=== PATIENT | male | born 1955 | race Caucasian/White ===

== ENCOUNTER 2016-11-22 22:04 | Inpatient (IN) | payer SELFPAY ==
[~2016-11-22] VITALS: Ht 180.3 cm; Wt 118.7 kg
[2016-11-23 02:45] LABS: BASOPHILS 0.1 % (0-2); EOSINOPHILS 0 % (0-7); HEMATOCRIT 53.2 % (42.0-54.0); HEMOGLOBIN 18.3 g/dL (13.5-17.5); IMMATURE GRANULOCYTES 0.4 % (0-5); MCHC 34.4 g/dL (31.0-37.0); MCV 90.2 fL (80.0-100.0); MEAN PLATELET VOLUME 12.5 fL (7.4-10.4); MONOCYTES 7.1 % (2-11); NEUTROPHILS 84.4 % (40-80); PLATELET COUNT 199 10x3/uL (130-400); RDW 13.2 % (11.5-14.5); WBC 12.1 10x3/uL (4.8-10.8)
[2016-11-23 02:58] LABS: ALBUMIN 3.8 g/dL (3.4-5.0); ANION GAP 28.3 mmol/L (8-16); BILIRUBIN - TOTAL 0.59 mg/dL (0.2-1.3); CALCIUM 9.6 mg/dL (8.5-10.1); CARBON DIOXIDE 14.2 mmol/L (21.0-32.0); CREATININE - SERUM 1.2 mg/dL (0.6-1.3); MAGNESIUM - SERUM 1.9 mg/dL (1.8-2.4); POTASSIUM - SERUM 4.5 mmol/L (3.5-5.1)
[2016-11-23] MEDS ORDERED: SEROQUEL100 MG (11:08)
[2016-11-23] MEDS ORDERED: AMBIEN10 MG PO (11:08)
[2016-11-23] MEDS ORDERED: KLONOPIN0.5 MG PO (11:10)
[2016-11-23 11:20] VITALS: BP 165/84; Ht 180.3 cm; Wt 118.7 kg
--- NOTE | 2016-11-23 11:33 | NUR ---
ARRIVED FROM ER VIA WC. AWAKE AND ALERT. COOL AND DRY. COLOR FLUSHED. IV SL IN L WRIST. LUNGS CLEAR. SEE ASSESMENT FOR FURTHER EVAL.
[2016-11-23 12:00] VITALS: BP 165/84
[2016-11-23 15:59] VITALS: BP 146/83
[2016-11-23 17:51] LABS: HEMOGLOBIN A1C 10.3 % (4.8-6.0)
[2016-11-23 19:00] VITALS: BP 163/99
--- NOTE | 2016-11-23 19:30 | NUR ---
RECEIVED REPORT, IV-L.WRIST NS @100, PT HAS SCD ON, A&O, ACHS, ON ELECTOLYTE PROTOCOL, BED IS LOW, SRX2, CALL LIGHT IN REACH, WILL CONTINUE PLAN OF CARE
[2016-11-24] VITALS: BP 147/79
[2016-11-24 04:00] VITALS: BP 165/101
[2016-11-24 06:32] LABS: CALCIUM 8.6 mg/dL (8.5-10.1); CHLORIDE - SERUM 104 mmol/L (98-107); CREATININE - SERUM 0.9 mg/dL (0.6-1.3); POTASSIUM - SERUM 4.2 mmol/L (3.5-5.1); SODIUM 136 mmol/L (136-145); UREA NITROGEN 20 mg/dL (7-18); eGFR NON AFRICAN AMERICAN > 90 mL/min (90-120)
[2016-11-24 06:33] LABS: HEMATOCRIT 50.3 % (42.0-54.0); HEMOGLOBIN 17.4 g/dL (13.5-17.5); LYMPHOCYTES 12.3 % (15-50); MCH 30.5 pg (26.0-34.0); MCHC 34.6 g/dL (31.0-37.0); PLATELET COUNT 208 10x3/uL (130-400); RDW 13.1 % (11.5-14.5); WBC 12.6 10x3/uL (4.8-10.8)
[2016-11-24 06:34] LABS: CALC OSMOLALITY 280 mosm/kg (275-300); CARBON DIOXIDE 18.1 mmol/L (21.0-32.0); GLUCOSE 215 mg/dL (74-106); MCV 88.2 fL (80.0-100.0)
[2016-11-24 08:52] VITALS: BP 160/95
--- NOTE | 2016-11-24 11:30 | NUR ---
GALEN FROM [facility] WAS SUPPOSED TO BE BY TO SEE PT AND GIVE DIABETIC DIET TEACHING. SHE IS NOT HERE TODAY. HAVE PAGED OSWALD FROM [facility] THAT IS COVERING FOR HER. SHE IS SUPPOSED TO COME UP AND SPEAK TO PT.
[2016-11-24] MEDS ORDERED: GLUCOVANCE 5/501 TAB PO (12:21)
[2016-11-24] MEDS ORDERED: LISINOPRIL10 MG PO (12:21)
[2016-11-24 13:11] VITALS: BP 120/69
--- NOTE | 2016-11-24 13:19 | NUR ---
STILL WAITING ON [facility] CRYSTAL TO TO COME TALK WITH PT
--- NOTE | 2016-11-24 13:25 | NUR ---
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 EMMANUEL SAID SHE WILL TRY AND OVERHEAD PAGE HER AGAIN.
--- NOTE | 2016-11-24 13:45 | NUR ---
CALLED [facility] TO SEE IF NISHA WAS OVER THERE TO SEE IF HE COULD GET IN TOUCH WITH CRYSTAL. HE IS NOT THERE. ASKED LENARD ON [facility] TO ASK HIM TO CALL US WHEN HE GETS BACK
--- NOTE | 2016-11-24 14:11 | NUR ---
FRANCISCO FROM [facility] CAME AND WENT OVER DIABETIC TEACHING WITH PT. PT AND PT SIG OTHER VERBALIZE UNDERSTANDING. DC PIV WITH CATH TIP INTACT. STILL TRYING TO GET FOLLOW UP WITH DR BONILLA SCHEDULED.
--- NOTE | 2016-11-24 14:21 | NUR ---
NUTRITIION MONITORING & EVAL PROVIDED PT WITH DIABETIC DIET EDU. DISCUSSED CARB SOURCES, SERVING SIZES, CONSISTENT MEAL TIMES. ALSO PROVIDED INFORMATION FOR CHECKING BLOOD SUGAR, GOALS. TAUGHT LABEL READING. PT RECEPTIVE TO INFO. RD FOLLOWING
--- NOTE | 2016-11-24 14:28 | NUR ---
WENT OVER DC PAPERWORK WITH PT PT VERBALIZES UNDERSTANDING. PT WAS WHEELED OUT VIA WHEELCHAIR TO FRONT ENTRANCE BY VOLUNTEER.
--- NOTE | 2016-11-24 14:44 | NUR ---
Patient Name: BO BEEBE Admission Status: ER Accout number: [id number] Admission Date: 11-23-2016 : 1955 Admission Diagnosis:NAUSEA WITH VOMITING, UNSPECIFIED Attending: YOAV Current LOS: 1 Anticipated DC Date: 11-24-2016 Planned Disposition: Home Primary Insurance: UNINSURED DISCOUNT PLAN LATE ENTRY: Discharge Planning Comments: * Is the patient Alert and Oriented? Yes 0 * How many steps to enter\exit or inside your home? elevator 0 * PCP DR. CASON 0 * Pharmacy [facility] [place] 0 * Preadmission Environment Home Alone 0 * ADLs Independent 0 * Equipment None 0 * Other Equipment NO MEDICAL EQUIPMENT PROVIDER PREFERENCE 0 * List name and contact numbers for known caregivers / representatives who currently or will assist patient after discharge: CHARLY BENAVIDES, FRIEND, 0 * Community resources currently utilized None 0 * Please name any agencies selected above. NONE 0 * Additional services required to return to the preadmission environment? No 0 * Can the patient safely return to the preadmission environment? Yes 0 * Has this patient been hospitalized within the prior 30 days at any hospital? No 0 CM MET WITH PT IN ROOM TO DISCUSS DISCHARGE PLANNING AND NEEDS. PT REPORTS LIVING AT HOME INDEPENDENTLY AND ALONE. PT HAS NO MEDICAL EQUIPMENT AND NO OUTSIDE SERVICES ASSISTING IN THE HOME. CM DISCUSSED AVAILABILITY OF HOME HEALTH, REHAB SERVICES AND MEDICAL EQUIPMENT. PT DENIES DISCHARGE NEEDS, REPORTS HIS FRIEND IS HERE TO PICK HIM UP FOR DISCHARGE HOME TODAY. PT IS WORKING ON GETTING HIS MEDICARE REINSTATED NOW AND REPORTS HE WILL BE SEEING DR. CASON PRIMARY CARE DOCTOR. Hinging Machine Operator: Cristian Rankin
== END 2016-11-24 14:29 | disposition home or self-care (01) | DRG 638 ==
LOC: D.ER 22:04 → OBSVTIME 11-23 10:20 → D.M2 11-23 10:20 → D.CLR 11-23 11:00 → D.M2 11-23 11:04
PROVIDERS: Emergency Medicine; ADMIT Family Medicine
DX: E11.65 Type 2 diabetes mellitus with hyperglycemia (principal); E87.2 Acidosis; G47.00 Insomnia, unspecified; F41.9 Anxiety disorder, unspecified; F32.9 Major depressive disorder, single episode, unspecified; I10 Essential (primary) hypertension; Z87.891 Personal history of nicotine dependence

== ENCOUNTER 2017-08-18 16:22 | Emergency (ER) | payer MEDICAID ==
[2016-11-23 11:20] VITALS: BMI 36.3
[~2017-08-18 16:22] MED LIST: AMBIEN10 MG PO; GLUCOVANCE 5/501 TAB PO; KLONOPIN0.5 MG PO; LISINOPRIL10 MG PO; SEROQUEL100 MG
== END 2017-08-18 17:50 | disposition home or self-care (01) ==
LOC: D.ER 16:22
DX: J11.1 Influenza due to unidentified influenza virus with other respiratory manifestations (principal); E11.9 Type 2 diabetes mellitus without complications

== ENCOUNTER 2018-07-31 07:50 | Emergency (ER) | payer MEDICAID ==
[~2018-07-31] VITALS: Ht 180.3 cm; Wt 120.5 kg
[2018-07-31 07:58] VITALS: BP 132/69; Ht 180.3 cm; Wt 120.5 kg
[2018-07-31] MEDS ORDERED: TYLENOL W/CODEI1 TAB PO (08:29)
== END 2018-07-31 08:41 | disposition home or self-care (01) ==
LOC: D.ER 07:50
DX: L72.3 Sebaceous cyst (principal)

== ENCOUNTER 2018-08-06 11:44 | Emergency (ER) | payer MEDICAID ==
[~2018-08-06] VITALS: Ht 180.3 cm; Wt 120.5 kg
[~2018-08-06 11:44] MED LIST changes: +TYLENOL W/CODEI1 TAB PO
[2018-08-06 11:47] VITALS: Ht 180.3 cm; Wt 120.5 kg
[2018-08-06 13:17] VITALS: BP 136/74
== END 2018-08-06 13:18 | disposition home or self-care (01) ==
LOC: D.ER 11:44
DX: L02.213 Cutaneous abscess of chest wall (principal)

== ENCOUNTER 2018-08-07 16:23 | Emergency (ER) | payer MEDICAID ==
[~2018-08-07] VITALS: Ht 180.3 cm; Wt 120.5 kg
[2018-08-07 16:36] VITALS: Ht 180.3 cm; Wt 120.5 kg
[2018-08-07 18:50] VITALS: BP 132/74
== END 2018-08-07 18:51 | disposition home or self-care (01) ==
LOC: D.ER 16:23
DX: L02.213 Cutaneous abscess of chest wall (principal); Z48.01 Encounter for change or removal of surgical wound dressing